=== PATIENT | male | born 1970 | race African-American/Black ===

== ENCOUNTER 2018-08-12 06:01 | Emergency (ER) | payer MEDICAID ==
[~2018-08-12] VITALS: Ht 177.8 cm; Wt 91.0 kg
[2018-08-12 06:40] LABS: HEMATOCRIT. 32.7 % (42.0-52.0); HEMOGLOBIN. 10.6 g/dL (14.0-18.0); MEAN CORPUSCULAR HEMOGLOBIN 28.4 pg (28.0-32.0); MEAN CORPUSCULAR VOLUME 87.6 fL (80.0-94.0); MEAN PLATELET VOLUME 6.8 fl (7.4-10.4); PLATELET 202 x1000/uL (130-400); RED BLOOD CELL COUNT 3.73 mill/uL (4.7-6.1); RED CELL DISTRIBUTION WIDTH 15.9 % (11.6-14.6)
[2018-08-12 06:45] LABS: CHLORIDE 103 mEq/L (98-107)
[2018-08-12 06:46] LABS: INR 1.1; PROTHROMBIN TIME 10.7 sec (9.1-11.1)
[2018-08-12 07:41] LABS: PLATELET ESTIMATE NORMAL
[2018-08-12 10:29] VITALS: BP 134/78
== END 2018-08-12 10:39 | disposition home or self-care (01) ==
LOC: ER 06:01
DX: R07.89 Other chest pain (principal); R06.02 Shortness of breath; D64.9 Anemia, unspecified; R79.89 Other specified abnormal findings of blood chemistry; N18.6 End stage renal disease; F17.200 Nicotine dependence, unspecified, uncomplicated; Z89.202 Acquired absence of left upper limb, unspecified level; Z99.2 Dependence on renal dialysis
CPT/HCPCS: 36415; 71045; 80053; 83880; 84484; 85025; 85610; 93005; 99285

== ENCOUNTER 2020-07-15 01:57 | Emergency (ER) | payer MEDICAID ==
[~2020-07-15] VITALS: Ht 180.3 cm; Wt 82.0 kg
[2020-07-15] MEDS ORDERED: NITROGLYCERIN 0.4MG TABLET SL SL PRN (02:15)
[2020-07-15] MEDS ORDERED: ASPIRIN 81MG TABLET PO ONE (02:15)
[2020-07-15 03:11] LABS: CHLORIDE 101 mEq/L (98-107)
[2020-07-15 03:33] LABS: HEMATOCRIT. 27.7 % (42.0-52.0); HEMOGLOBIN. 9.4 g/dL (14.0-18.0); MEAN CORPUSCULAR HEMOGLOBIN 30.1 pg (28.0-32.0); MEAN CORPUSCULAR VOLUME 88.8 fL (80.0-94.0); PLATELET 179 x1000/uL (130-400); RED BLOOD CELL COUNT 3.12 mill/uL (4.7-6.1); RED CELL DISTRIBUTION WIDTH 13.9 % (11.6-14.6)
[2020-07-15 04:38] LABS: PLATELET ESTIMATE NORMAL
[2020-07-15] MEDS ORDERED: MORPHINE SULFATE 4 MG/ML CPJ (NOT FOR IM USE) IV ONE (05:15)
[2020-07-15 08:30] VITALS: BP 116/74
== END 2020-07-15 08:49 | disposition short-term general hospital (02) ==
LOC: ER 02:24 → CANBEDREQ 06:35 → ER 08:49
DX: I12.0 Hypertensive chronic kidney disease with stage 5 chronic kidney disease or end stage renal disease (principal); N18.6 End stage renal disease
CPT/HCPCS: 36415; 71045; 80053; 83880; 84484; 85025; 93005; 96374; J2270; Z7610